=== PATIENT | male | born 1975 | race Hispanic/Latino ===

== ENCOUNTER 2020-06-01 14:13 | Emergency (ER) | payer SELFPAY ==
[2020-06-01] MEDS ORDERED: Acetaminophen 500 MG TAB ONE (15:28)
--- NOTE | 2020-06-01 15:43 | RAD ---
4 views of the left elbow: 06/01/2020 COMPARISON: None HISTORY: Injury, trauma, pain FINDINGS: No elbow joint effusion is appreciated on the lateral examination. No displaced fracture or evidence of dislocation is seen. There is osteophyte formation involving the coronoid process. There is osteophyte formation of the re gion of the medial and lateral distal left humeral epicondyles. IMPRESSION: Degenerative change. No acute fracture/dislocation.
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
== END 2020-06-01 16:52 | disposition home or self-care (01) ==
LOC: ERS 14:13
DX: S39.012A Strain of muscle, fascia and tendon of lower back, initial encounter (principal); S50.02XA Contusion of left elbow, initial encounter; R03.0 Elevated blood-pressure reading, without diagnosis of hypertension; V69.9XXA Occupant (driver) (passenger) of heavy transport vehicle injured in unspecified traffic accident, initial encounter; Y92.410 Unspecified street and highway as the place of occurrence of the external cause
CPT/HCPCS: 72100